=== PATIENT | female | born 1955 | race American Indian/Alaskan Native ===

== ENCOUNTER 2017-10-25 10:27 | Emergency (ER) | payer OTHER, MEDICAID ==
[2017-10-25] MEDS ORDERED: ATIVAN ONE (11:10)
[2017-10-25] MEDS ORDERED: GEODON IM ONE ×2 (11:11→11:12)
[2017-10-25] MEDS ORDERED: ATIVAN IM ONE (11:12)
[2017-10-25] MEDS ORDERED: NACL 0.9% 1000 ML 1,000 ML IV ONE (13:14)
[2017-10-25 13:47] LABS: Basophils % (Auto) 0.6 % (0.0-1.8); Eosinophils # (Auto) 0.1 K/mm3 (0.0-0.4); Eosinophils % (Auto) 0.7 % (0.0-4.3); Hematocrit 40.9 % (30.3-42.9); Hemoglobin 13.6 gm/dl (10.1-14.3); Lymphocytes % (Auto) 26.7 % (13.4-35.0); Mean Corpuscular HGB Conc 33 % (30-34); Mean Corpuscular Hemoglobin 27 pg (28-32); Mean Corpuscular Volume 82 fl (79-97); Monocytes # (Auto) 0.6 K/mm3 (0.0-0.8); Monocytes % (Auto) 7.6 % (0.0-7.3); Platelet Count 331 K/mm3 (140-440); Red Cell Distribution Width 14.2 % (13.2-15.2)
[2017-10-25 14:25] LABS: Albumin 3.6 g/dL (3.9-5); BUN/Creatinine Ratio 10; Blood Urea Nitrogen 8 mg/dL (7-17); Calcium 8.7 mg/dL (8.4-10.2); Hemolysis Index 207
[2017-10-25 14:29] LABS: Bilirubin,Direct 0.2 mg/dL (0-0.2)
[2017-10-25 14:30] LABS: Alanine Aminotransferase 7 units/L (7-56)
--- NOTE | 2017-10-25 14:32 | Emergency Department Report ---
ED General Adult HPI - General Chief complaint: Psych Stated complaint: MENTAL HEALTH EVALUATION Time Seen by Provider: 10/25/17 11:12 Source: patient Mode of arrival: Ambulatory Limitations: No Limitations - History of Present Illness Initial comments: Patient presents to the emergency department very agitated and apparently paranoid and was brought in by police. She has a flight of ideas and is hyper verbal. She is not answering questions of the staff. She is very noncooperative. She had to be 1013 and given chemical sedation. She has a history of paranoid schizophrenia. -: unknown Treatments Prior to Arrival: none - Related Data Previous Rx's Medication Instructions Recorded Last Taken Type Acetaminophen [Acetaminophen TAB] 650 mg PO Q4H PRN #30 tablet 10/08/17 Unknown Rx Clopidogrel [Plavix] 75 mg PO QDAY #30 tablet 10/08/17 Unknown Rx Doxycycline [Vibramycin CAP] 100 mg PO Q12HR #20 capsule 10/08/17 Unknown Rx Famotidine [Pepcid] 20 mg PO BID #30 tablet 10/08/17 Unknown Rx Nicotine [Habitrol] 21 mg TD QDAY #14 patch 10/08/17 Unknown Rx Allergies Allergy/AdvReac Type Severity Reaction Status Date / Time ampicillin [From Unasyn] AdvReac Vomiting Verified 10/05/17 14:31 sulbactam [From Unasyn] AdvReac Vomiting Verified 10/05/17 14:31 ED Review of Systems ROS: Stated complaint: MENTAL HEALTH EVALUATION Other details as noted in HPI Comment: Unobtainable due to pts medical conditions ED Past Medical Hx - Past Medical History Hx Congestive Heart Failure: No Hx Diabetes: No Hx Psychiatric Treatment: Yes (schizophrenia) Hx Asthma: No Hx HIV: No Additional medical history: unable to assess at this time - Surgical History Additional Surgical History: unable to assess at this time - Social History Smoking Status: Never Smoker - Medications Home Medications: Home Medications Medication Instructions Recorded Confirmed Last Taken Type Acetaminophen [Acetaminophen TAB] 650 mg PO Q4H PRN #30 tablet 10/08/17 Unknown Rx Clopidogrel [Plavix] 75 mg PO QDAY #30 tablet 10/08/17 Unknown Rx Doxycycline [Vibramycin CAP] 100 mg PO Q12HR #20 capsule 10/08/17 Unknown Rx Famotidine [Pepcid] 20 mg PO BID #30 tablet 10/08/17 Unknown Rx Nicotine [Habitrol] 21 mg TD QDAY #14 patch 10/08/17 Unknown Rx ED Physical Exam - General Limitations: Altered Mental Status (acutely psychotic) General appearance: alert, in no apparent distress - Head Head exam: Present: atraumatic, normocephalic - Eye Eye exam: Present: normal appearance. Absent: scleral icterus - ENT ENT exam: Present: mucous membranes dry - Neck Neck exam: Present: normal inspection. Absent: tenderness, meningismus - Respiratory Respiratory exam: Present: normal lung sounds bilaterally. Absent: respiratory distress - Cardiovascular Cardiovascular Exam: Present: regular rate, normal rhythm. Absent: systolic murmur, diastolic murmur, rubs, gallop - GI/Abdominal GI/Abdominal exam: Present: soft, normal bowel sounds. Absent: distended, tenderness, guarding, rebound - Extremities Exam Extremities exam: Present: normal inspection - Back Exam Back exam: Present: normal inspection - Neurological Exam Neurological exam: Present: altered, CN II-XII intact (as testable). Absent: motor sensory deficit - Psychiatric Psychiatric exam: Present: agitated, anxious - Skin Skin exam: Present: warm, dry, intact, normal color. Absent: rash ED Course Vital Signs 10/25/17 11:00 Temperature 98 F Pulse Rate 66 Respiratory 26 H Rate Blood Pressure 180/160 O2 Sat by Pulse 97 Oximetry - Reevaluation(s) Reevaluation #1: Patient looked a bit volume depleted. She is given liter of IV fluid. She is medically clear for psychiatric admission. Mental health consult. 1013. 10/25/17 14:35 ED Medical Decision Making - Lab Data Result diagrams: 10/25/17 13:24 10/25/17 13:24 Laboratory Results - last 24 hr 10/25/17 10/25/17 13:24 13:24 WBC 7.6 RBC 5.00 Hgb 13.6 Hct 40.9 MCV 82 MCH 27 L MCHC 33 RDW 14.2 Plt Count 331 Lymph % (Auto) 26.7 [place] % (Auto) 7.6 H Eos % (Auto) 0.7 Baso % (Auto) 0.6 Lymph # 2.0 [place] # 0.6 Eos # 0.1 Baso # 0.0 Seg Neutrophils % 64.4 Seg Neutrophils # 4.9 Sodium 140 Chloride 99.5 Carbon Dioxide 24 BUN 8 Creatinine 0.8 Estimated GFR > 60 BUN/Creatinine Ratio 10 Glucose 111 H Calcium 8.7 Total Bilirubin 0.20 Total Protein 6.7 Albumin 3.6 L Albumin/Globulin Ratio 1.2 K 4.58 Critical care attestation.: If time is entered above; I have spent that time in minutes in the direct care of this critically ill patient, excluding procedure time. ED Disposition Clinical Impression: Paranoid schizophrenia, Acute psychosis Disposition: [id number] PSY HOSP/PSY UNIT Is pt being admited?: No Does the pt Need Aspirin: No Condition: Stable Time of Disposition: 14:37
[2017-10-25] MEDS ORDERED: TYLENOL PO PRN (14:43)
[2017-10-25] MEDS ORDERED: MILK OF MAGNESIA PO PRN (14:43)
[2017-10-25] MEDS ORDERED: ALUM-MAG HYDROX-SIMETH 200-200-20MG/5ML PO PRN (14:43)
[2017-10-26 06:36] LABS: Bilirubin,Urine NEG (Negative); Blood,Urine NEG (Negative); Color,Urine Yellow (Yellow); Mucus,Urine FEW /HPF; Protein,Urine <15 mg/dL mg/dL (Negative); Urobilinogen,Urine < 2.0 mg/dL (<2.0)
[2017-10-26 06:44] LABS: Amphetamine Screen,Urine PRESUMPTIVE NEGATIVE; Benzodiazepines Screen,Urine PRESUMPTIVE NEGATIVE; Cannabinoid Screen,Urine PRESUMPTIVE NEGATIVE; Cocaine Screen,Urine PRESUMPTIVE NEGATIVE; Methadone Screen,Urine PRESUMPTIVE NEGATIVE; Opiate Screen,Urine PRESUMPTIVE NEGATIVE
[2017-10-27 12:11] VITALS: BP 137/77
--- NOTE | 2017-10-27 19:40 | Consultation ---
History of Present Illness - Reason for Consult Consult date: 10/27/17 Reason for consult: Initial Psychiatric Consult - Chief Complaint Chief complaint: " I'm trying to figure out how I feel." - History of Present Psychiatric Illness Alesha is a 61 year old AAF who presents to the emergency room accompanied by the police secondary to agitation and paranoia. Patient has a PPHx of Schizoaffective, Bipolar Type. She states " I'm here because I had an episode. I can't remember what happened." During the assessment patient is hostile.T hroughout the assessment patient responds differently to the same question. Patient is paranoid and and responding to auditory hallucinations. Appears to be suspicious of provider. She refuses to tell provider what the voices are saying. She reports good energy, good appetite, and good sleep. She denies SI/ HI. Allergies: Ampicillin, Sulbactam Past Psychiatric History: Previous Diagnosis - Schizoaffective Disorder ( ); More than 40 previous inpatient hospitalizations ; 1 previous suicide attempt; No outpatient psychiatrist. Past Psychiatric Medication Trials: " I can't remember it." History of Trauma/Abuse: Unable to obtain. Patient refuses to answer question. Social History: Some College; Disability; x 2 ; 1 son (27 years old); Lives with roommate in [place], [place].; Poor support system. Family History: Patient denies. Drug/ Alcohol Abuse: Patient denies. Medications and Allergies Allergies Allergy/AdvReac Type Severity Reaction Status Date / Time ampicillin [From Unasyn] AdvReac Vomiting Verified 10/05/17 14:31 sulbactam [From Unasyn] AdvReac Vomiting Verified 10/05/17 14:31 Home Medications Medication Instructions Recorded Confirmed Last Taken Type Acetaminophen [Acetaminophen TAB] 650 mg PO Q4H PRN #30 tablet 10/08/17 Unknown Rx Clopidogrel [Plavix] 75 mg PO QDAY #30 tablet 10/08/17 Unknown Rx Doxycycline [Vibramycin CAP] 100 mg PO Q12HR #20 capsule 10/08/17 Unknown Rx Famotidine [Pepcid] 20 mg PO BID #30 tablet 10/08/17 Unknown Rx Nicotine [Habitrol] 21 mg TD QDAY #14 patch 10/08/17 Unknown Rx Active Meds: Active Medications Acetaminophen (Tylenol) 650 mg PO Q4HR PRN PRN Reason: Pain MILD(1-3)/Fever >100.5/ANDERSON Al Hydrox/Mg Hydrox/Simethicone (Alum-Mag Hydrox-Simeth [id number]/5ml) 30 ml PO Q4HR PRN PRN Reason: Indigestion Magnesium Hydroxide (Milk Of Magnesia) 30 ml PO Q12HR PRN PRN Reason: Constipation Mental Status Exam - Vital signs Last Vital Signs Temp 98.2 F 10/27/17 12:10 Pulse 85 10/27/17 12:10 Resp 18 10/27/17 12:58 BP 137/77 10/27/17 12:10 Pulse Ox 98 10/27/17 12:58 - Exam Narrative exam: Mental Status Exam General Appearance: Disheveled-hospital gown Eye Contact: Intermittent Orientation: Alert and oriented x 2 ( person, place) Attitude/Behavior: Irritable Sensorium: Distracted Psychomotor & Musculoskeletal Activity: Agitated Mood: " I don't know how I feel." Anxious, irritable, angry Affect: Labile Speech/Language: Rapid Thought Processes: [place], tangential Thought Content: Paranoid Perception: Auditory hallucinations Concentration/Attention: Impaired concentration/attention Suicidal Ideations/Plan: Patient denies Homicidal Ideations/Plan: Patient denies Judgment: Poor Insight: Poor Results Result Diagrams: 10/25/17 13:24 10/25/17 13:24 All other labs normal. Assessment and Plan Assessment and plan: Impression: Alesha is a 61 year old AAF who presents to the emergency department very agitated and apparently paranoid. Patient brought in by police. Today patient is paranoid and agitated. Very suspicious of provider. Assessment is conflicting at times due different responses. Psychosis noted. She denies SI/HI. DDx: Psychosis Unspecified r/o Schizoaffective Disorder r/o Schizophrenia Plan 1. Continue 1013 and reassess in 24 hours. 2. Restart Zyprexa 5mg po QHS for psychosis/mood. 3. Educated patient on medications' indication, frequency, and side effects. 3. Will continue to monitor mood, sleep, appetite, and medication.
== END 2017-10-27 22:54 ==
LOC: ED 10:27
DX: F23 Brief psychotic disorder (principal); F20.0 Paranoid schizophrenia
CPT/HCPCS: 36415; 80048; 80074; 80307; 81001; 82550; 84443; 85025; 96360; 96372; 99285; G0480; J2060; J3486; J7030; 80320